=== PATIENT | female | born 1990 | race Caucasian/White ===

== ENCOUNTER 2017-07-20 13:11 | Emergency (ER) | payer MEDICAID, SELFPAY ==
[2017-07-20 14:50] VITALS: BP 132/86; PULSE 100; RESP 16; TEMP 37.7; O2SAT 99; BMI 34.6
--- NOTE | 2017-07-20 15:41 | HMH.EDUTC ---
[facility] – [place] Clinical Impression: Pyelonephritis Disposition: Home, Self-Care Condition on Discharge: Good Instructions: DI for Kidney Infection Additional Instructions: * increase fluids, Water and NOT soda or tea * Start antibiotic and be sure to take as ordered for the FULL length of time although you should start to see improvement over the next 48 hours. * You had rocephin injection in clinic * pyridium as needed. Remember this will turn your urine ORANGE, this is normal but will stain whatever it gets on. this includes tears and contacts. Try not to wear contacts due to risk of staining orange. * You should not need the pyridium longer than 48 hours. If so, follow up with primary care to review urine culture and ensure antibiotic is adequate * zofran as needed today and tomorrow but should not be needed after 48 hours. * Be SURE to follow up immediately for new or worsening symptoms, AND in [address] Nelson for urine culture results AND in 10-14 days to repeat UA and ensure infection resolved and blood no longer present. * Be sure to let your PCP (or whoever you follow up with) know we sent urine culture so they can request records and ensure you are on the appropriate antibiotic if you are not getting better or getting worse!!! Prescriptions: Ondansetron [Zofran 4mg ODT] 4 mg PO Q8H PRN #6 tab.rapdis PRN Reason: Nausea Phenazopyridine HCl [Pyridium 200mg Tablet] 200 mg PO TID PRN #6 tab PRN Reason: Dysuria Sulfamethoxazole/Trimethoprim [Bactrim DS tablet] 1 each PO BID #20 tab Referrals: Mariana Nelson MD [Primary Care Provider] - (Follow up immediately for new or worsening symptoms, AND in 48 hours for urine culture results AND in 10-14 days to repeat UA and ensure infection resolved and blood no longer present. ) Forms: Work/School Release Time of Disposition: 17:01 (pt agrees with POC. Understands the risk of worsening infection leading to sepsis. Agrees to follow up as we discussed. ) Medical Decision Making Vital Signs: 07/20/17 14:50 Temperature 100 F H Temperature Source Temporal Artery Scan Pulse Rate [Right Radial] 100 H Respiratory Rate 16 Blood Pressure [Right Arm] 132/86 Blood Pressure Mean [Right Arm] 101 02 Sat by Pulse Oximetry 99 Oxygen Delivery Method Room Air - Lab Data Lab results reviewed: Yes: I reviewed the patient's lab results. Lab Results 07/20/17 16:10: WBC 14.8 H, RBC 4.33, Hgb 12.8, Hct 38.1, MCV 88.0, MCH 29.6, MCHC 33.6, RDW 13.7, Plt Count 290, MPV 8.4, Neut % (Auto) 82.0 H, Lymph % (Auto) 12.4, [place] % (Auto) 5.0, Eos % (Auto) 0.3, Baso % (Auto) 0.3, Neut # (Auto) 12.1 H, Lymph # (Auto) 1.8, [place] # (Auto) 0.7, Eos # (Auto) 0.0, Baso # (Auto) 0.0 07/20/17 16:10: Sodium 136, Potassium 3.9, Chloride 101, Carbon Dioxide 23, Anion Gap 15.9 H, BUN 9, Creatinine 0.86, Estimated Creat Clear 148, Estimated GFR 80, Est GFR ( Amer) 97, Glucose 129 H, Calcium 8.6, Total Bilirubin 1.0, AST 11 L, ALT 27, Alkaline Phosphatase 93, Total Protein 8.1, Albumin 3.6, Globulin 4.5 H, Albumin/Globulin Ratio 0.8 L 07/20/17 16:10: Lactic Acid 1.6 07/20/17 16:55: Urine Color Yellow, Urine Appearance Clear, Urine pH 5.5, Ur Specific [place] 1.010, Urine Protein 1+, Urine Glucose (UA) Negative, Urine Ketones Negative, Urine Blood 2+, Urine Nitrate Positive A, Urine Bilirubin Negative, Urine Urobilinogen 0.2, Ur Leukocyte Esterase 3+ A, Influenza Type A Ag Negative, Influenza Type B Ag Negative, Strep Scn Rapid Clinic Negative Result diagrams: 07/20/17 16:10 07/20/17 16:10 Orders (Tests/Meds): ED MEDICATIONS Discontinued Medications Generic Name Dose Route Start Last Admin Trade Name Freq PRN Reason Stop Dose Admin Ceftriaxone Sodium 1 gm 07/20/17 16:55 Rocephin 1gm Vial IM 07/20/17 16:56 ONCE ONE Lidocaine HCl 0 ml 07/20/17 16:55 Lidocaine 1% 10ml Mdv IM 07/20/17 16:56 ONCE ONE ORDERS Category Date Time Status Strep Screen Confirma
--- NOTE | 2017-07-20 15:46 | ED_ITS ---
[facility] – [place] Disposition Clinical Impression: Pyelonephritis Disposition: Home, Self-Care Condition on Discharge: Good Instructions: DI for Kidney Infection Additional Instructions: * increase fluids, Water and NOT soda or tea * Start antibiotic and be sure to take as ordered for the FULL length of time although you should start to see improvement over the next 48 hours. * You had rocephin injection in clinic * pyridium as needed. Remember this will turn your urine ORANGE, this is normal but will stain whatever it gets on. this includes tears and contacts. Try not to wear contacts due to risk of staining orange. * You should not need the pyridium longer than 48 hours. If so, follow up with primary care to review urine culture and ensure antibiotic is adequate * zofran as needed today and tomorrow but should not be needed after 48 hours. * Be SURE to follow up immediately for new or worsening symptoms, AND in [address] Nelson for urine culture results AND in 10-14 days to repeat UA and ensure infection resolved and blood no longer present. * Be sure to let your PCP (or whoever you follow up with) know we sent urine culture so they can request records and ensure you are on the appropriate antibiotic if you are not getting better or getting worse!!! Prescriptions: Ondansetron [Zofran 4mg ODT] 4 mg PO Q8H PRN #6 tab.rapdis PRN Reason: Nausea Phenazopyridine HCl [Pyridium 200mg Tablet] 200 mg PO TID PRN #6 tab PRN Reason: Dysuria Sulfamethoxazole/Trimethoprim [Bactrim DS tablet] 1 each PO BID #20 tab Referrals: Mariana Nelson MD [Primary Care Provider] - (Follow up immediately for new or worsening symptoms, AND in 48 hours for urine culture results AND in 10-14 days to repeat UA and ensure infection resolved and blood no longer present. ) Forms: Work/School Release Time of Disposition: 17:01 (pt agrees with POC. Understands the risk of worsening infection leading to sepsis. Agrees to follow up as we discussed. ) Medical Decision Making Vital Signs: 07/20/17 14:50 Temperature 100 F H Temperature Source Temporal Artery Scan Pulse Rate [Right Radial] 100 H Respiratory Rate 16 Blood Pressure [Right Arm] 132/86 Blood Pressure Mean [Right Arm] 101 02 Sat by Pulse Oximetry 99 Oxygen Delivery Method Room Air - Lab Data Lab results reviewed: Yes: I reviewed the patient's lab results. Lab Results 07/20/17 16:10: WBC 14.8 H, RBC 4.33, Hgb 12.8, Hct 38.1, MCV 88.0, MCH 29.6, MCHC 33.6, RDW 13.7, Plt Count 290, MPV 8.4, Neut % (Auto) 82.0 H, Lymph % (Auto ) 12.4, [place] % (Auto) 5.0, Eos % (Auto) 0.3, Baso % (Auto) 0.3, Neut # (Auto) 12.1 H, Lymph # (Auto) 1.8, [place] # (Auto) 0.7, Eos # (Auto) 0.0, Baso # (Auto) 0.0 07/20/17 16:10: Sodium 136, Potassium 3.9, Chloride 101, Carbon Dioxide 23, Anion Gap 15.9 H, BUN 9, Creatinine 0.86, Estimated Creat Clear 148, Estimated GFR 80, Est GFR ( Amer) 97, Glucose 129 H, Calcium 8.6, Total Bilirubin 1.0, AST 11 L, ALT 27, Alkaline Phosphatase 93, Total Protein 8.1, Albumin 3.6, Globulin 4.5 H, Albumin/Globulin Ratio 0.8 L 07/20/17 16:10: Lactic Acid 1.6 07/20/17 16:55: Urine Color Yellow, Urine Appearance Clear, Urine pH 5.5, Ur Specific [place] 1.010, Urine Protein 1+, Urine Glucose (UA) Negative, Urine Ketones Negative, Urine Blood 2+, Urine Nitrate Positive A, Urine Bilirubin Negative, Urine Urobilinogen 0.2, Ur Leukocyte Esterase 3+ A, Influenza Type A Ag Negative, Influenza Type B Ag Negative, Strep Scn Rapid Clinic Negative Result diagrams: 07/20/17 16:10 07/20/17 16:10 Orders (Tests/Meds):
[2017-07-20 16:34] LABS: Alanine Aminotransferase 27 U/L (12-78); Albumin Level 3.6 gm/dL (3.4-5.0); Albumin/Globulin Ratio 0.8 (1.1-1.8); Alkaline Phosphatase 93 U/L (46-116); Anion Gap 15.9 mEq/L (5-15); Aspartate Amino Transferase 11 U/L (15-37); Basophils % 0.3 % (0.1-2.0); Blood Urea Nitrogen 9 mg/dL (7-18); Calcium 8.6 mg/dL (8.5-10.1); Carbon Dioxide 23 mmol/L (21.0-32.0); Chloride 101 mmol/L (98-107); Creatinine Clearance Estimated 148 mL/min (0-300); Creatinine,Serum 0.86 mg/dL (0.55-1.02); Eosinophils % 0.3 % (0.1-12.0); Estimated Glomerular Filt Rate 80 ml/min (>60); GFR (African American) 97 ML/MIN (>60); Globulin 4.5 gm/dl (1.3-3.2); Glucose 129 mg/dL (74-106); Hematocrit 38.1 % (37.0-47.0); Hemoglobin 12.8 g/dL (12.2-16.2); Lymphocytes # 1.8 K/mm3 (0.7-4.5); Lymphocytes % 12.4 K/mm3 (10-50); Mean Corpuscular HGB Conc 33.6 g/dL (31.8-35.4); Mean Corpuscular Hemoglobin 29.6 pg (27.0-31.2); Mean Platelet Volume 8.4 fl (7.4-10.4); Monocytes # 0.7 K/mm3 (0.1-1.0); Neutrophils # 12.1 K/mm3 (1.8-7.8); Platelet Count 290 K/mm3 (142-424); Potassium 3.9 mmoL/L (3.5-5.1); Red Blood Count 4.33 M/mm3 (4.20-5.40); Red Cell Distribution Width 13.7 % (11.5-17.5); Sodium 136 mmol/L (136-145); Total Protein,Serum 8.1 gm/dL (6.4-8.2); White Blood Count 14.8 K/mm3 (4.8-10.8)
[2017-07-20 16:36] LABS: Lactic Acid 1.6 mmol/L (0.4-2.0)
[2017-07-20 17:01] LABS: Apearance,Urine Clear (Clear); Color,Urine Yellow (Yellow)
[2017-07-20 17:02] LABS: Bilirubin,Urine Negative (Negative); Blood, Urine 2+ (Negative); Glucose,Urine (UA) Negative (Negative); Ketones,Urine Negative (Negative); PH,Urine 5.5 (5.0-8.5); Protein,Urine 1+ (Negative); UTC Influenza A Antigen Negative (Negative); UTC Influenza B Antigen Negative (Negative); UTC Leukocyte Esterase,Urine 3+ (Negative); UTC Strep Screen (Rapid) Negative (Negative); Urobilinogen,Urine 0.2 EU/dl (0.2)
[2017-07-20 17:03] LABS: UTC Nitrate,Urine Positive (Negative)
[2017-07-20 17:19] VITALS: BP 127/77; PULSE 67; RESP 20; TEMP 36.9; O2SAT 99
== END 2017-07-20 17:21 | disposition home or self-care (01) ==
PROVIDERS: Emergency Provider Nurse Practitioner Family; PCP Family Medicine
DX: N12 Tubulo-interstitial nephritis, not specified as acute or chronic (principal)
CPT/HCPCS: 36415; 80053; 81003; 83605; 85025; 87086; 87088; 87186; 87804; 87880; 96372; 99202; 99203

== ENCOUNTER → 2019-08-21 15:17 | Outpatient (CLI) | payer MEDICAID, SELFPAY | PROVIDERS: Visit Provider Nurse Practitioner Obstetrics & Gynecology | DX: O23.40 Unspecified infection of urinary tract in pregnancy, unspecified trimester (principal); Z34.90 Encounter for supervision of normal pregnancy, unspecified, unspecified trimester | CPT/HCPCS: 87086; 87088; 87186 ==

== ENCOUNTER → 2019-09-18 12:49 | Outpatient (CLI) | payer MEDICAID, SELFPAY ==
--- NOTE | 2019-09-18 12:49 | US_ITS ---
PROCEDURE: US OB /MATERNAL DETAIL CLINICAL INDICATION: 20 wk gestation And COMPARISON: No exams were available for comparison FINDINGS: There is a single live fetus which is in cephalic presentation. heart body motion noted. The cervix is closed measuring 3 cm transabdominal. The placenta is posterior and grade 1. There is average amount of amniotic fluid Complete survey performed and was unremarkable on the submitted images as in PACS. No discrete anomalies identified on survey imaging by technologist. Active fetus. Three-vessel cord with satisfactory umbilical cord insertion. 4- chamber heart noted. Survey of brain & ventricles Unremarkable. Face and neck survey unremarkable. Diaphragm and chest views unremarkable. Abdomen: Both kidneys noted and unremarkable. Stomach noted and satisfactory. Spine: Survey of the spine satisfactory with no anomalies identified nor imaged. Both arms and legs noted. Amniotic Fluid: Adequate. Maternal adnexa: No significant findings. Measurements: Average ultrasound age 19weeks 6days. Gestational Age 19 weeks 6 days Estimated due date by ultrasound age 0902/06/2020. Estimated weight 333g BPD = 19weeks 4days OFD = 19 weeks 5 days HC = 18weeks 6days AC = 20weeks 2days FL = 20weeks 3days Growth Percentile= 61% Heart Rate = 150bpm Cerebellum = 19weeks 3days Humerus = 20weeks 3days HC/AC is 1.08 CI is 0.79 FL/BPD is 0.74 FL/AC is 0.22 IMPRESSION: Single live fetus in cephalic presentation with an average ultrasound age 19 weeks 6 days. All parameters correlate with no obvious anomalies. Please see above for detail Dictated by: Enzo Sawyer MD 09/18/2019 18:57 Electronically signed by Enzo Sawyer MD in [place] 09/18/2019 18:57
== END ==
PROVIDERS: PCP Family Medicine; Visit Provider Nurse Practitioner Obstetrics & Gynecology
DX: Z34.90 Encounter for supervision of normal pregnancy, unspecified, unspecified trimester (principal)
CPT/HCPCS: 76811

== ENCOUNTER → 2020-01-09 17:46 | Outpatient (CLI) | payer MEDICAID, SELFPAY | PROVIDERS: Visit Provider Nurse Practitioner Obstetrics & Gynecology | DX: Z34.90 Encounter for supervision of normal pregnancy, unspecified, unspecified trimester (principal) | CPT/HCPCS: 86403 ==

== ENCOUNTER 2020-01-29 05:06 | Inpatient (IN) | payer MEDICAID, SELFPAY ==
[2020-01-29 05:18] VITALS: BMI 34.4
[2020-01-29 06:33] VITALS: BP 119/69; PULSE 80; RESP 18; TEMP 36.7; O2SAT 99; BMI 34.4
[2020-01-29 06:39] LABS: Basophils # 0.1 K/mm3 (0-0.2); Basophils % 0.5 % (0.1-2.0); Eosinophils # 0.2 K/mm3 (0.0-0.4); Eosinophils % 1.4 % (0.1-12.0); Hematocrit 35.8 % (37.0-47.0); Hemoglobin 12.2 g/dL (12.2-16.2); Lymphocytes # 3.5 K/mm3 (0.7-4.5); Lymphocytes % 24.3 % (10-50); Mean Corpuscular HGB Conc 33.9 g/dL (31.8-35.4); Mean Corpuscular Hemoglobin 30.8 pg (27.0-31.2); Mean Corpuscular Volume 90.9 fl (81-99); Monocytes # 0.9 K/mm3 (0.1-1.0); Monocytes % 6.2 % (1.7-9.3); Neutrophils # 9.6 K/mm3 (1.8-7.8); Neutrophils % 67.7 % (37.0-80.0); Platelet Count 196 K/mm3 (142-424); Red Blood Count 3.94 M/mm3 (4.20-5.40); Red Cell Distribution Width 14.4 % (11.5-17.5); White Blood Count 14.2 K/mm3 (4.8-10.8)
[2020-01-29 06:58] LABS: Barbiturates Screen,Urine Negative ng/ml (<200); Benzodiazepines Screen,Urine Negative ng/ml (<200)
[2020-01-29 06:59] LABS: Amphetamine/Metha Screen,Urine Negative ng/ml (<1000)
[2020-01-29 07:00] LABS: Cannabinoid Screen,Urine Negative ng/ml (<50); Methadone Screen,Urine Negative ng/ml (<300)
[2020-01-29 07:01] LABS: Cocaine Screen,Urine Negative ng/ml (<300)
[2020-01-29 07:02] LABS: Opiate Screen,Urine Negative ng/ml (<300); Phencyclidine Screen,Urine Negative ng/ml (<25)
--- NOTE | 2020-01-29 08:10 | HMH.LABNOT ---
Labor Note - Subjective: Date: 01/29/20 Time: 08:10 regular contraction - Objective: NST:: Reactive Contractions:: every 2-3 minutes Cervical Dilation:: 3-4 Effacement:: 50% Station: -2 Membranes: artificially ruptured - Fetus: Monitoring?: Yes monitoring type:: Internal Comment:: I inserted an IUPC as well as a scalp clip. I ruptured membranes and the fluid was clear. - Assessment: Labor progressing?: Yes Cephalopelvic disproportion?: No Patient Problems: All Active Problems (Acute) Tachycardia (Chronic) SVT (supraventricular tachycardia) (Chronic) Pyelonephritis (Acute) - Plan: Anesthesia for epidural?: Yes Continue to labor down?: Yes Plan for ?: No Continue to monitor?: Yes Start pushing?: No
--- NOTE | 2020-01-29 08:11 | HMH.OBAPHP ---
OB - H&P: HPI Antepartum - History of Present Illness Chief complaint: Term , history of fast deliveries. History of present illness: She is a 29-year-old 5 para 4 who is 39+ weeks gestational age. She has history of delivering fairly quickly and as result of that we elected to bring her in at term. - History of Present Criteria for establishing EDC:: LMP confirmed by 1st trimester US care: good care Ultrasounds: normal 1st trimester US, normal mid trimester US Obstetrical complications: none Medical complications: none - Labs Blood type: O (+) positive Rubella: immune RPR/VDRL: nonreactive GBS status: negative HBsAG: negative [facility] History I have reviewed the patient's past medical history: Yes Medical History: Reports:: Kidney Stones, Migraine Denies:: Cancer, Diabetes Mellitus Type 1, Diabetes Mellitus Type 2, Hypertension, MRSA *Have you ever received a pneumonia vaccine?: No *Have you received a flu vaccine this season?: No Other Surgeries: Yes: Other. No: Amputation: No Fractures: No - *Social History Smoking Status: Current every day smoker Alcohol Intake: never Alcohol Intake Frequency:: a few times a week Substance Use Type: other *Occupational Status:: employed *Travel in the last 8 weeks: None Family Hx:: Diabetes, Heart Attack, Hypertension, Stroke, Asthma Para: 4 Review of Systems - Review of Systems Review of systems:: pertinent systems reviewed and negative unless documented below Meds Home Medications Medication Instructions Recorded Confirmed Type vitamin 1 tab PO DAILY #30 tab 08/21/19 01/22/20 Rx no.76-iron,carbonyl 29 mg iron-folic acid 1 mg tablet ferrous sulfate 325 mg (65 mg 325 mg PO DAILY #30 tab 12/28/19 01/22/20 Rx iron) tablet Allergies Allergy/AdvReac Type Severity Reaction Status Date / Time Latex, Natural Rubber Allergy Rash Verified 01/22/20 15:52 sulfamethoxazole Allergy Verified 01/22/20 15:52 [From Bactrim] trimethoprim [From Bactrim] Allergy Verified 01/22/20 15:52 OB - H&P: Exam - Physical Exam Vital signs: Temp Pulse Resp BP Pulse Ox 98.1 F 80 18 119/69 99 01/29/20 06:33 01/29/20 06:33 01/29/20 06:33 01/29/20 06:33 01/29/20 06:33 - Constitutional no acute distress - Routine HEENT Exam Head: Present: normocephalic Eye: Present: EOMI, PERRL ENT: Present: mucous membranes moist - Routine Neck Exam Present: supple, full ROM - Routine Respiratory Exam Absent: accessory muscle use (good air entry bilaterally), respiratory distress, wheezes, crackles - Routine Cardiovascular Exam Present: RRR. Absent: murmur - Routine Abdominal Exam Present: soft, normoactive bowel sounds. Absent: tenderness, distended, guarding - Routine Rectal Exam Patient deferred: visual exam, digital exam - Routine Exam Patient deferred: external exam, groin exam, perineal exam - Routine Extremities Exam Present: full ROM. Absent: cyanosis, edema - Routine Skin Exam Present: intact. Absent: cyanosis - Routine Neurological Exam Present: alert, oriented X3 - Routine Psychiatric Exam Present: normal affect OB - Results - Labs Labs: Short CBC 01/29/20 Range/Units 06:20 WBC 14.2 H (4.8-10.8) K/mm3 Hgb 12.2 (12.2-16.2) g/dL Hct 35.8 L (37.0-47.0) % Plt Count 196 (142-424) K/mm3 OB - A/P Antepartum (1) Normal delivery at term Current visit: Yes Status: Acute - Additional Plan Planning to breastfeed?: No Plan: induction Additional Information:: I have ruptured membranes and inserted an IUPC as well as a clip. She is doing well. We will expect a vaginal delivery.
[2020-01-29 08:19] LABS: Coronavirus 19 IgG Antibody Negative (Negative); Coronavirus 19 IgM Antibody Negative (Negative)
[2020-01-29 08:21] VITALS: BP 122/73; PULSE 76; RESP 18; TEMP 36.7; O2SAT 99
--- NOTE | 2020-01-29 11:06 | HMH.LABNOT ---
Labor Note - Subjective: Date: 01/29/20 Time: 11:06 regular contraction - Objective: NST:: Reactive Contractions:: every 2-3 minutes Cervical Dilation:: 9-10 Effacement:: 100% Station: +1 Membranes: artificially ruptured - Fetus: Monitoring?: Yes monitoring type:: Internal and External, Internal - Assessment: Labor progressing?: Yes Cephalopelvic disproportion?: No Patient Problems: All Active Problems Normal delivery at term (Acute) (Acute) Tachycardia (Chronic) SVT (supraventricular tachycardia) (Chronic) Pyelonephritis (Acute) - Plan: Anesthesia for epidural?: Yes Continue to labor down?: Yes Plan for ?: No Continue to monitor?: Yes Start pushing?: Yes
--- NOTE | 2020-01-29 11:21 | P.PCN_ITS ---
- Delivery Note Delivery Date:: 01/29/20 Delivery Time:: 11:12 Anesthesia Type: Epidural Was labor medically induced?: Yes Induction method: per misoprostol protocol delivered prior to 39 weeks?: No Infant Gender: Female at 1 minute: 9 at 5 minutes: 9 Delivery Procedure:: She was started on IV oxytocin had her membranes ruptured. Under labor epidural she progressed to full dilation. She delivered spontaneously a liveborn female child at 11:12 AM on the morning of 29 January 2020. On deliver the head the anterior shoulder then delivered easily. This was followed by the rest the infant's body atraumatically. The baby cried spontaneously and was vigorous. The oropharynx and nasopharynx were bulb suction. We allowed the cord to continue to pulsate for approximately 1 minute. The cord was then doubly clamped and cut and the was placed on the mother's abdomen for further care. The nurses assigned Apgars of 9 at 1 minute and 9 at 5 minutes. We then obtained cord blood as well as cord pH. Using gentle traction on the cord and countertraction on the fundus I was able to easily deliver the placenta intact. He had a normal three-vessel cord. There were no perineal or vaginal lacerations. She has O Rh+ blood, she is rubella immune and was group B streptococcus negat mare. She plans to breast-feed. Progress made blood loss was approximately 400 cc. Placental Delivery Description: Spontaneous
[2020-01-29 11:33] LABS: Cord Blood PH 7.38 (7.35-7.45)
--- NOTE | 2020-01-29 13:20 | P.PN_ITS ---
[facility] Anesthesia Checklist - Patient Identification Patient Identification: Arm Band, Verbal (Name & ) - Structural Data Admitted From: Home Planned Operative Procedure/s: Labor epidural Consent for Planned Operative Procedure(s) Verified: Yes Verified Documents: Surgical Consent, History and Physical - Chart Verification Results Verified: CBC, UA (Toxicology) - Additional verifications Patient : Yes Anesthesia Reactions: No - Airway Assessment C-Spine Mobility Assessed: Yes TMJ Mobility Assessed: Yes Dentition: Good Dentition - Neurological Assessment Level of Consciousness: Awake, Alert, Appropriate, Follows Commands Hx Seizures: No Numbness or tingling in extremities: No - Anesthesia Plan Anesthesia Risk discussed: Yes Anesthesia Plan: Verified ASA Class: II Anesthesia Type: Epidural [facility] History I have reviewed the patient's past medical history: Yes Medical History: 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 No: , Pacemaker Amputation: No Fractures: No - *Social History Last grade of school completed: GED Smoking Status: Current every day smoker Tobacco Type: cigarettes # Packs/Day (cigarettes): 1 Alcohol Intake: former Alcohol Intake Frequency:: other Substance Use Type: other *Occupational Status:: employed Household Members: significant other *Travel in the last 8 weeks: None Family Hx:: Cancer Para: 4
[2020-01-29 17:08] VITALS: BP 114/56; PULSE 71; RESP 18; O2SAT 98
[2020-01-30 07:45] LABS: Hematocrit 34.7 % (37.0-47.0); Hemoglobin 11.7 g/dL (12.2-16.2)
[2020-01-30 08:43] VITALS: BP 122/88; PULSE 78; RESP 18; TEMP 36.5; O2SAT 99
--- NOTE | 2020-01-30 11:53 | HMH.ACPN2 ---
Internal Medicine - PN: Subj *Date: 01/30/20 *Time: 11:53 Interval history: PPD #1 No unusual complaints Tolerating regular diet, ambulating and voiding without difficulty Lochia appropriate Exam Vital signs and Labs for Last 24 Hours: Temp Pulse Resp BP Pulse Ox 97.7 F 78 18 122/88 99 01/30/20 08:43 01/30/20 08:43 01/30/20 08:43 01/30/20 08:43 01/30/20 08:43 Laboratory Results - last 24 hr 01/30/20 07:12: Hgb 11.7 L, Hct 34.7 L I & O for Last 24 hours: Intake & Output 01/27/20 01/28/20 01/29/20 01/30/20 11:59 11:59 11:59 11:59 Weight 207 lb 0.013 oz Narrative: CONSTITUTIONAL: no acute distress HEENT: mucous membranes moist PULMONARY: breathing unlabored without audible wheezes CV: no tachycardia or visible JVD; normal LE peripheral pulses ABD: soft, NT/ND, no guarding : fundus firm at/below umbilicus SKIN: no visible rash or lesions EXT: 1+ edema LEs NEURO: alert/oriented, no altered mental status PSYCH: appropriate mood and demeanor without visible anxiety/depression Assessment and Plan (1) Normal delivery at term Current visit: Yes Status: Acute Category: Medical Code(s): O80 - Encounter for full-term uncomplicated delivery
[2020-01-30 12:06] VITALS: BP 123/73; PULSE 79; RESP 18; TEMP 36.3; O2SAT 98
[2020-01-31 06:52] LABS: HIV Screen 4th Generation wRfx Non Reactive (Non Reactive); Hepatitis B Surface Antigen Negative (Negative); Rapid Plasma Reagin Ab Titer Non Reactive (NonRea<1:1)
[2020-01-31 07:41] VITALS: BP 98/54; PULSE 76; RESP 18; TEMP 36.5; O2SAT 98
--- NOTE | 2020-01-31 12:16 | HMH.OBDCSM ---
General - General Admission date:: 01/29/20 Discharge date: 01/31/20 Hospital Course Hospital Course: IOl at term normal course uncomplicated Tolerating regular diet, ambulating and voiding without difficulty Discharged home on PPD #2 in stable condition Declines Rx for pain meds at discharge Rhogam Administration: Not Indicated Objective Vital signs: Temp Pulse Resp BP Pulse Ox 97.7 F 76 18 98/54 L 98 01/31/20 07:41 01/31/20 07:41 01/31/20 07:41 01/31/20 07:41 01/31/20 07:41 Narrative: CONSTITUTIONAL: no acute distress HEENT: mucous membranes moist PULMONARY: breathing unlabored without audible wheezes CV: no tachycardia or visible JVD; normal LE peripheral pulses ABD: soft, NT/ND, no guarding : fundus firm at/below umbilicus SKIN: no visible rash or lesions EXT: 1+ edema LEs NEURO: alert/oriented, no altered mental status PSYCH: appropriate mood and demeanor without visible anxiety/depression Results Labs on day of discharge: Labs from last 24 hours 01/29/20 06:20 RPR Titer Non reactive Hep Bs Antigen Negative HIV 1&2 Ag/Ab, 4th Gen Non reactive Rubella IgG Antibody 2.60 DS: Diagnosis - Discharge Diagnosis (1) Normal delivery at term Status: Acute Discharge Plan - Patient Discharge Instructions ACTIVITY: Continue current activity DIET: regular diet Additional Instructions: No heavy lifting Drink plenty of fluid Nothing in the vagina for 6 weeks No strenuous activity Patient Instructions: Pre-eclampsia, Depression, Labor and Delivery, Vaginal , Hemorrhage, [facility] Post Discharge Instructions, Preventing the Spread of Coronavirus Discharge Instructions - Follow up Plan Follow up with: Judah Yost MD [Staff Physician] - 02/11/20 3:15 pm Disposition: Home, Self-Skilled Nursing Medications: Home Medications Medication Instructions Recorded Confirmed Type Ferrous Sulfate 325 mg PO DAILY 01/29/20 01/29/20 History Vit,Calc76/Iron/Folic 1 tab PO DAILY 01/29/20 01/29/20 History [Prenatabs Rx Tablet] Prescriptions/Medication Reconciliation: New Ibuprofen [Motrin 400mg tablet] 800 mg PO Q6HP PRN tablet PRN Reason: Mild To Moderate Pain Acetaminophen [Acetaminophen 325mg tab] 650 mg PO Q4HP PRN tablet PRN Reason: Mild Pain Continued Vit,Calc76/Iron/Folic [Prenatabs Rx Tablet] 1 tab PO DAILY Ferrous Sulfate 325 mg PO DAILY - Problem Reconciliation Problems Reviewed?: Yes
== END 2020-01-31 13:33 | disposition home or self-care (01) | DRG 807 ==
PROVIDERS: Admitting Provider Nurse Practitioner Obstetrics & Gynecology; PCP Nurse Practitioner Family; Visit Provider Nurse Practitioner Obstetrics & Gynecology
DX: O80 Encounter for full-term uncomplicated delivery (principal); Z37.0 Single live birth; Z3A.39 39 weeks gestation of pregnancy
CPT/HCPCS: 59409; 59025; 80305; 82800; 85014; 85018; 85025; 86328; 86592; 86762; 86850; 87340; 94761; C1758

== ENCOUNTER 2020-03-25 17:05 | Emergency (ER) | payer MEDICAID, SELFPAY ==
[2020-03-25 17:43] VITALS: BP 147/94; PULSE 83; RESP 14; TEMP 36.7; O2SAT 99; BMI 30.9
[2020-03-25 17:58] LABS: Adenovirus,PCR Not Detected (NotDetected); Bordetella Pertussis Not Detected (NotDetected); Chlamydophila Pneumoniae, PCR Not Detected (NotDetected); Coronavirus 19, PCR Not Detected (NotDetected); Coronavirus 229E Not Detected (NotDetected); Coronavirus NL63 Not Detected (NotDetected); Coronavirus OC43 Not Detected (NotDetected); Coronovirus HKU1,PCR Not Detected (NotDetected); Human Metapneumovirus Not Detected (NotDetected); Influenza A, PCR Not Detected (NotDetected); Influenza AH1, 2009 Not Detected (NotDetected); Influenza AH1, PCR Not Detected (NotDetected); Influenza AH3,PCR Not Detected (NotDetected); Influenza B, PCR Not Detected (NotDetected); Mycoplasma Pneumoniae, PCR Not Detected (NotDetected); Parainfluenza 1, PCR Not Detected (NotDetected); Parainfluenza 2, PCR Not Detected (NotDetected); Parainfluenza 3, PCR Not Detected (NotDetected); Parainfluenza 4, PCR Not Detected (NotDetected); Respiratory Syncytial Virus Not Detected (NotDetected); Rhinovirus/Enterovirus Not Detected (NotDetected)
--- NOTE | 2020-03-25 18:04 | HMH.EDUTC ---
[facility] [place] Disposition Clinical Impression: Encounter for laboratory testing for COVID-19 virus, Exposure to COVID-19 virus Disposition: Home, Self-Care Condition on Discharge: Good Instructions: Preventing the Spread of Coronavirus Discharge Instructions Additional Instructions: *Monitor Temp, Over the counter Motrin or Tylenol as directed/as needed Tylenol every 4 hours and Motrin every 6 hours (as long as your family doctor has told you that you can take it) for fever or pain. and straight to ER if unable to lower temp less than 101.0 after medication given *Warm salt water gargles may help to soothe the throat *Throat Lozenges *Warm fluids like tea with honey may help to soothe the throat *Sleep elevated *Humidifier/Vaporizer Follow up IMMEDIATELY for new or worsening symptoms or no Noticeable improvement over the next 48-72 hours. 911 for difficulty breathing or swallowing You was tested for today for COVID19 your test result should be back in the next 24 hours, you may call tomorrow after 9am to see if your test results are back and the result You was given a handout with instructions for Self Quarantine and Self isolation for while you wait on test results and what to do if they are positive Referrals: Laura Celis [Primary Care Provider] - As needed Forms: Work/School Release Time of Disposition: 18:06 Medical Decision Making - Mike Inquiry Pt receiving controlled substance: No Mike was queried for this patient: No Vital Signs: 03/25/20 17:43 Temperature 98.0 F Temperature Source Oral Pulse Rate [Radial] 83 Respiratory Rate 14 Blood Pressure [Right Arm] 147/94 H Blood Pressure Mean [Right Arm] 111 Blood Pressure Source [Right Arm] Automatic Cuff Blood Pressure Position [Right Arm] Sitting 02 Sat by Pulse Oximetry 99 Oxygen Delivery Method Room Air Orders (Tests/Meds): ORDERS Category Date Time Status Full Resp Panel w/COVID ([facility]) Routine Lab 03/25/20 17:42 Received [facility] [place] HPI - General Stated complaint: COVID TEST Time Seen by Provider: 03/25/20 18:04 Mode of Arrival: Ambulatory Source of Information: Patient Limitations: No Limitations Description of Symptoms (Recalled from Triage Doc. by RN): needs covid test for work due to exposure at work. HEENT Symptoms (Recalled from RN notes): No Resp Symptoms (Recalled from RN notes): No Skin Symptoms (Recalled from RN notes): No MS Symptoms (Recalled from RN notes): No Functional Status (Recalled from RN notes): wnl - History of Present Illness Provider Complaint: Patient states that she had a headache earlier and States that someone that she worked with tested positive for COVID States that her work is requiring her to get tested before she can return to work - Related Data Home Medications Medication Instructions Recorded Confirmed Ferrous Sulfate 325 mg PO DAILY 01/29/20 01/29/20 Vit,Calc76/Iron/Folic 1 tab PO DAILY 01/29/20 01/29/20 [Prenatabs Rx Tablet] Previous Rx's Medication Instructions Recorded Acetaminophen [Acetaminophen 325mg 650 mg PO Q4HP PRN tab 01/31/20 tab] Ibuprofen [Motrin 400mg 800 mg PO Q6HP PRN tab 01/31/20 tablet] fluoxetine 10 mg tablet 10 mg PO DAILY #30 tab 02/11/20 hydroxyzine pamoate 25 mg capsule 25 mg PO TID 30 Days #90 cap 02/11/20 Allergies Allergy/AdvReac Type Severity Reaction Status Date / Time Latex, Natural Rubber Allergy Rash Verified 02/11/20 15:45 sulfamethoxazole Allergy Verified 02/11/20 15:45 [From Bactrim] trimethoprim [From Bactrim] Allergy Verified 02/11/20 15:45 - Worker's Comp Is this a Worker's Comp case?: No [facility] History - Hepatitis A Screen Drug use history?: No High risk sexual behaviors?: No History of sexually transmitted infection?: No Currently employed?: No Childcare worker?: No Do you have indoor plumbing?: Yes Do you have electricity?: Yes Attestation statement:: This patient has been screened for Hepatitis
[2020-03-25 18:39] VITALS: BP 147/94; PULSE 83; RESP 14; TEMP 36.9; O2SAT 99
== END 2020-03-25 18:45 | disposition home or self-care (01) ==
PROVIDERS: Emergency Provider Nurse Practitioner; PCP Nurse Practitioner Family
DX: Z20.828 Contact with and (suspected) exposure to other viral communicable diseases (principal)
CPT/HCPCS: 87581; 87633; 87798; 99201; U0003

== ENCOUNTER 2020-05-03 15:27 | Emergency (ER) | payer MEDICAID, SELFPAY ==
[2020-05-03 15:40] VITALS: BP 119/79; PULSE 85; RESP 20; TEMP 36.9; O2SAT 98; BMI 31.6
--- NOTE | 2020-05-03 16:04 | HMH.EDUTC ---
[facility] [place] Disposition Clinical Impression: Exposure to COVID-19 virus Disposition: Home, Self-Care Condition on Discharge: Good Instructions: Preventing the Spread of Coronavirus Discharge Instructions Additional Instructions: isolate until test is known to be neg Referrals: Laura Celis [Primary Care Provider] - Time of Disposition: 16:27 Medical Decision Making - Mike Inquiry Pt receiving controlled substance: No Vital Signs: 05/03/20 15:40 Temperature 98.4 F Temperature Source Oral Pulse Rate [Right Brachial] 85 Respiratory Rate 20 Blood Pressure [Right Arm] 119/79 Blood Pressure Mean [Right Arm] 92 Blood Pressure Source [Right Arm] Automatic Cuff Blood Pressure Position [Right Arm] Sitting 02 Sat by Pulse Oximetry 98 Oxygen Delivery Method Room Air Orders (Tests/Meds): ORDERS Category Date Time Status Covid-19 Nasal PCR ([facility]) Routine Lab 05/03/20 15:45 Received [facility] [place] HPI - General Chief complaint: Urgent Treatment Center Stated complaint: COVID Testing Time Seen by Provider: 05/03/20 16:04 Mode of Arrival: Ambulatory Source of Information: Patient Limitations: No Limitations Description of Symptoms (Recalled from Triage Doc. by RN): PATIENT REQUESTING COVID TEST D/T EXPOSURE. DENIES SYMPTOMS HEENT Symptoms (Recalled from RN notes): No Resp Symptoms (Recalled from RN notes): No Skin Symptoms (Recalled from RN notes): No MS Symptoms (Recalled from RN notes): No Functional Status (Recalled from RN notes): WNL - History of Present Illness Provider Complaint: 29 old female presents for covid test, was exposed ths week by co worker that tested positive. no symptoms - Related Data Home Medications Medication Instructions Recorded Confirmed Ferrous Sulfate 325 mg PO DAILY 01/29/20 01/29/20 Vit,Calc76/Iron/Folic 1 tab PO DAILY 01/29/20 01/29/20 [Prenatabs Rx Tablet] Previous Rx's Medication Instructions Recorded Acetaminophen [Acetaminophen 325mg 650 mg PO Q4HP PRN tab 01/31/20 tab] Ibuprofen [Motrin 400mg 800 mg PO Q6HP PRN tab 01/31/20 tablet] fluoxetine 10 mg tablet 10 mg PO DAILY #30 tab 02/11/20 hydroxyzine pamoate 25 mg capsule 25 mg PO TID 30 Days #90 cap 09/14/20 Allergies Allergy/AdvReac Type Severity Reaction Status Date / Time Latex, Natural Rubber Allergy Rash Verified 02/11/20 15:45 sulfamethoxazole Allergy Verified 02/11/20 15:45 [From Bactrim] trimethoprim [From Bactrim] Allergy Verified 02/11/20 15:45 - Worker's Comp Is this a Worker's Comp case?: No [facility] History - Hepatitis A Screen Drug use history?: No High risk sexual behaviors?: No History of sexually transmitted infection?: No Currently employed?: No Childcare worker?: No Do you have indoor plumbing?: Yes Do you have electricity?: Yes Attestation statement:: This patient has been screened for Hepatitis A risk factors. I have reviewed the patient's past medical history: Yes Medical History: Reports:: Arrhythmia, Kidney Stones, Migraine Denies:: Cancer, Diabetes Mellitus Type 1, Diabetes Mellitus Type 2, Hypertension, Internal Pacemaker, MRSA, Seizures Other Surgeries: Yes: Other. No: , Pacemaker Amputation: No Fractures: No - Social History Smoking Status: Current every day smoker Tobacco Type: cigarettes # Packs/Day (cigarettes): 1 Alcohol Intake: never Alcohol Intake Frequency:: other Substance Use Type: other Occupational Status: other Housing: house Household Members: significant other Family Hx:: Cancer ROS Obtained: Yes All systems reviewed & no additional complaints - Constitutional Constitutional: Reports system reviewed and no additional complaints, except as docu, Denies fever(s) - Eyes Eyes: Reports system reviewed and no additional complaints, except as docu, Denies blurry vision - ENT Ears, Nose, Mouth, and Throat: Reports system reviewed and no additional complaints, except as docu, Denies bleeding gums -
[2020-05-03 16:35] VITALS: BP 119/79; PULSE 85; RESP 20; TEMP 36.9; O2SAT 98
== END 2020-05-03 16:36 | disposition home or self-care (01) ==
PROVIDERS: Emergency Provider Nurse Practitioner Family; PCP Nurse Practitioner Family
DX: Z20.828 Contact with and (suspected) exposure to other viral communicable diseases (principal); G43.709 Chronic migraine without aura, not intractable, without status migrainosus; Z87.442 Personal history of urinary calculi; F17.210 Nicotine dependence, cigarettes, uncomplicated; Z91.040 Latex allergy status; Z88.2 Allergy status to sulfonamides
CPT/HCPCS: 99201; U0003

== ENCOUNTER → 2020-09-26 10:23 | Outpatient (CLI) | payer MEDICAID, SELFPAY ==
--- NOTE | 2020-09-26 10:28 | US_ITS ---
PROCEDURE: US OB <= 14 WEEKS FETUS CLINICAL INDICATION: for dates COMPARISON: US US OB /MATERNAL DETAIL from 09/18/2019 FINDINGS: An intrauterine gestational sac is present with a pole with a crown-rump length of 5.63cm correlating to gestational age of 12weeks 2days. heart tones are present with an FHR of 160bpm. The chorion and amnion are not yet fused. Placenta is forming posteriorly. IMPRESSION: Live IUP at 12 weeks 2 days Estimated due date by Ultrasound is 04/08/2021 Dictated by: Enzo Sawyer MD 09/26/2020 15:30 Enzo Sawyer MD in [facility] 09/26/2020 15:30
== END ==
PROVIDERS: PCP Nurse Practitioner Family; Visit Provider Nurse Practitioner Obstetrics & Gynecology
DX: Z34.90 Encounter for supervision of normal pregnancy, unspecified, unspecified trimester (principal)
CPT/HCPCS: 76801

== ENCOUNTER → 2020-10-22 11:02 | Outpatient (CLI) | payer MEDICAID, SELFPAY ==
[2020-10-22 11:38] LABS: Basophils % 0.3 % (0.1-2.0); Eosinophils # 0.1 K/mm3 (0.0-0.4); Eosinophils % 0.9 % (0.1-12.0); Hematocrit 39.6 % (37.0-47.0); Hemoglobin 13.7 g/dL (12.2-16.2); Lymphocytes # 2.2 K/mm3 (0.7-4.5); Lymphocytes % 16.6 % (10-50); Mean Corpuscular HGB Conc 34.6 g/dL (31.8-35.4); Mean Corpuscular Volume 86.5 fl (81-99); Mean Platelet Volume 8.4 fl (7.4-10.4); Monocytes # 0.6 K/mm3 (0.1-1.0); Monocytes % 4.5 % (1.7-9.3); Neutrophils # 10.4 K/mm3 (1.8-7.8); Neutrophils % 77.8 % (37.0-80.0); Platelet Count 251 K/mm3 (142-424); Red Blood Count 4.57 M/mm3 (4.20-5.40); Red Cell Distribution Width 14.5 % (11.5-17.5); White Blood Count 13.3 K/mm3 (4.8-10.8)
[2020-10-23 08:34] LABS: HIV Screen 4th Generation wRfx Non Reactive (Non Reactive)
[2020-10-24 04:11] LABS: Hepatitis B Surface Antigen Negative (Negative); Hepatitis C Antibody <0.1 s/co ratio (0.0-0.9); Rapid Plasma Reagin Ab Titer Non Reactive (NonRea<1:1)
[2020-10-24 04:12] LABS: Rubella Antibodies, IgG 3.38 index (Immune >0.99)
== END ==
PROVIDERS: Visit Provider Nurse Practitioner Obstetrics & Gynecology
DX: Z34.90 Encounter for supervision of normal pregnancy, unspecified, unspecified trimester (principal); Z3A.11 11 weeks gestation of pregnancy
CPT/HCPCS: 36415; 85025; 86592; 86703; 86762; 86850; 87340; 87380; G0432

== ENCOUNTER → 2020-11-19 11:56 | Outpatient (CLI) | payer MEDICAID, SELFPAY ==
--- NOTE | 2020-11-19 12:59 | US_ITS ---
PROCEDURE: US OB /MATERNAL DETAIL CLINICAL INDICATION: 20 week gestation COMPARISON: US US OB <= 14 WEEKS FETUS from 09/26/2020 FINDINGS: Single viable intrauterine gestation. Cephalic position. Placenta: Posteriorplacenta grade 1. There is average amount fluid. The cervix appears satisfactory. Closed and measuring in length. Complete survey performed and was unremarkable on the submitted images as in PACS. No discrete anomalies identified on survey imaging by technologist. Active fetus. Three-vessel cord with satisfactory umbilical cord insertion. 4- chamber heart noted. Survey of brain & ventricles Unremarkable. Face and neck survey unremarkable. Diaphragm and chest views unremarkable. Abdomen: Both kidneys noted and unremarkable. Stomach noted and satisfactory. Spine: Survey of the spine satisfactory with no anomalies identified nor imaged. Both arms and legs noted. Amniotic Fluid: Adequate. Maternal adnexa: No significant findings. Measurements: Average ultrasound age 19weeks 6days. Gestational Age 19weeks 6days Estimated due date by ultrasound age 1104/09/2021. Estimated weight 325g BPD = 19weeks 6days OFD = 19weeks 6days HC = 19weeks 1day AC = 20weeks 1day FL = 20weeks 2days Growth Percentile= 36Percent% Heart Rate = 146bpm Cerebellum = 20weeks 2days Humerus = 20weeks 3days HC/AC is 1.1 CI is 0.79 FL/BPD is 0.72 FL/AC is 0.22 IMPRESSION: Viable IUP identified in cephalic position estimated ultrasound age and gestational age 19 weeks 6 days Dictated by: Dr. Chang Holden MD 11/19/2020 15:23 Dr. Chang Holden MD in [facility] 11/19/2020 15:23
== END ==
PROVIDERS: PCP Nurse Practitioner Family; Visit Provider Nurse Practitioner Obstetrics & Gynecology
DX: Z34.90 Encounter for supervision of normal pregnancy, unspecified, unspecified trimester (principal); Z3A.20 20 weeks gestation of pregnancy
CPT/HCPCS: 76811

== ENCOUNTER → 2021-03-13 16:20 | Outpatient (CLI) | payer MEDICAID, SELFPAY | PROVIDERS: Visit Provider Nurse Practitioner Obstetrics & Gynecology | DX: Z34.90 Encounter for supervision of normal pregnancy, unspecified, unspecified trimester (principal) | CPT/HCPCS: 86403 ==

== ENCOUNTER 2021-03-25 06:25 | Inpatient (IN) | payer MEDICAID, SELFPAY ==
[2021-03-25 06:48] VITALS: BP 107/59; PULSE 74; RESP 18; TEMP 36.4; O2SAT 98
--- NOTE | 2021-03-25 06:56 | HMH.DN ---
- Delivery Note Delivery Date:: 03/25/21 Delivery Time:: 06:30 Anesthesia Type: None Was labor medically induced?: No Induction method: none Gestational age (weeks): 38 delivered prior to 39 weeks?: Yes Justification for early elective delivery:: Active Labor Infant Gender: Male at 1 minute: 8 at 5 minutes: 9 Delivery Procedure:: She is a 30-year-old 6 para 5 at 38 and 3 weeks gestational age who arrived in active labor. She was found to be fully dilated and spontaneously delivered a liveborn male child at 6:30 AM on the morning of March 25, 2021. The baby delivered before I arrived. He was delivered by the nurses. They assigned Apgars of 8 at 1 minute and 9 at 5 minutes. When I arrived the placenta had not delivered and she was receiving IV oxytocin. Using gentle traction the cord and countertraction from the surgical to easily deliver the placenta intact at 6:50 AM. It had a normal three-vessel cord. She has O+ blood,, she is rubella immune and was group B streptococcus negative. Her film tests checker Dr. Willis. Estimated blood loss was approximately 200 cc. There were no perineal or vaginal lacerations. Placental Delivery Description: Spontaneous
--- NOTE | 2021-03-25 06:58 | HMH.OBAPHP ---
OB - H&P: HPI Antepartum - History of Present Illness Chief complaint: Active labor History of present illness: She is a 30-year-old 6 para 5 at 38 weeks gestational age who arrived in active labor and quickly precipitously delivered a liveborn male child. She has had good care. - History of Present Criteria for establishing EDC:: LMP confirmed by 1st trimester US care: good care Ultrasounds: normal 1st trimester US, normal mid trimester US Obstetrical complications: none Medical complications: none - Labs Blood type: O (+) positive Rubella: immune RPR/VDRL: nonreactive GBS status: negative HBsAG: negative [facility] History I have reviewed the patient's past medical history: Yes Medical History: Reports:: Arrhythmia, Cancer, Kidney Stones, Migraine Denies:: Diabetes Mellitus Type 1, Diabetes Mellitus Type 2, Hypertension, Internal Pacemaker, MRSA, Seizures *Have you ever received a pneumonia vaccine?: No *Have you received a flu vaccine this season?: No Other Surgeries: Yes: Other. No: , Pacemaker Amputation: No Fractures: No - *Social History Smoking Status: Current every day smoker Tobacco Type: cigarettes # Packs/Day (cigarettes): 1 Alcohol Intake: never Alcohol Intake Frequency:: other Substance Use Type: other *Occupational Status:: other Housing: house Household Members: significant other *Travel in the last 8 weeks: None Family Hx:: Cancer Review of Systems - Review of Systems Review of systems:: pertinent systems reviewed and negative unless documented below Meds Home Medications Medication Instructions Recorded Confirmed Type Vit,Calc76/Iron/Folic 1 tab PO DAILY 01/29/20 03/13/21 History [Prenatabs Rx Tablet] ferrous gluconate 324 mg (38 mg 324 mg PO DAILY #30 tab 11/19/20 03/13/21 Rx iron) tablet nitrofurantoin 100 mg PO BID 10 Days #20 cap 02/03/21 03/13/21 Rx monohydrate/macrocrystals 100 mg capsule Allergies Allergy/AdvReac Type Severity Reaction Status Date / Time Latex, Natural Rubber Allergy Rash Verified 03/13/21 11:58 sulfamethoxazole Allergy Verified 03/13/21 11:58 [From Bactrim] trimethoprim [From Bactrim] Allergy Verified 03/13/21 11:58 OB - H&P: Exam - Constitutional no acute distress - Routine HEENT Exam Head: Present: normocephalic Eye: Present: EOMI, PERRL ENT: Present: mucous membranes moist - Routine Neck Exam Present: supple, full ROM - Routine Respiratory Exam Absent: accessory muscle use (good air entry bilaterally), respiratory distress, wheezes, crackles - Routine Cardiovascular Exam Present: RRR. Absent: murmur - Routine Abdominal Exam Present: soft, normoactive bowel sounds. Absent: tenderness, distended, guarding - Routine Rectal Exam Patient deferred: visual exam, digital exam - Routine Exam Patient deferred: external exam, groin exam, perineal exam - Routine Extremities Exam Present: full ROM. Absent: cyanosis, edema - Routine Skin Exam Present: intact. Absent: cyanosis - Routine Neurological Exam Present: alert, oriented X3 - Routine Psychiatric Exam Present: normal affect OB - A/P Antepartum (1) Normal delivery Status: Acute (2) Labor, precipitous, delivered Status: Acute - Additional Plan Planning to breastfeed?: No Plan: other Additional Information:: She arrived in active labor and delivered precipitously here in the hospital.
[2021-03-25 07:18] VITALS: BMI 34.4
[2021-03-25 07:19] VITALS: BP 107/59; PULSE 74; RESP 18; TEMP 36.4; O2SAT 98; BMI 34.4
--- NOTE | 2021-03-25 07:54 | HMH.PHAINT ---
MEDICATION RECONCILIATION COMPLETE USING OFFICE VISIT FROM LAST WEEK
[2021-03-25 08:31] LABS: Coronavirus 19, PCR Not Detected (NotDetected); Influenza A, PCR Not Detected (NotDetected); Influenza B, PCR Not Detected (NotDetected)
[2021-03-25 08:39] LABS: Basophils # 0.1 K/mm3 (0-0.2); Basophils % 0.4 % (0.1-2.0); Eosinophils # 0.1 K/mm3 (0.0-0.4); Eosinophils % 0.6 % (0.1-12.0); Hematocrit 38.9 % (37.0-47.0); Hemoglobin 12.6 g/dL (12.2-16.2); Lymphocytes # 1.4 K/mm3 (0.7-4.5); Lymphocytes % 8.3 % (10-50); Mean Corpuscular HGB Conc 32.3 g/dL (31.8-35.4); Mean Corpuscular Hemoglobin 30.2 pg (27.0-31.2); Mean Corpuscular Volume 93.4 fl (81-99); Mean Platelet Volume 10.1 fl (7.4-10.4); Monocytes # 0.5 K/mm3 (0.1-1.0); Monocytes % 3.1 % (1.7-9.3); Neutrophils # 14.6 K/mm3 (1.8-7.8); Neutrophils % 87.6 % (37.0-80.0); Platelet Count 238 K/mm3 (142-424); Red Blood Count 4.17 M/mm3 (4.20-5.40); Red Cell Distribution Width 15.1 % (11.5-17.5); White Blood Count 16.6 K/mm3 (4.8-10.8)
[2021-03-25 08:43] LABS: MANUAL DIFFERENTIAL MANUAL DIFFERENTIAL (MANUAL DIFF)
[2021-03-25 09:21] LABS: Eosinophils % 2 % (0-3); Lymphocytes % 17 % (10-50); Monocytes % 2 % (2-9); Neutrophils % 78 % (42-76); Platelet Estimate Normal; Total Cells Counted 100
--- NOTE | 2021-03-25 14:20 | P.PN_ITS ---
Internal Medicine - PN: Subj *Date: 03/25/21 *Time: 14:20 Interval history: She was having a few more clots than normal and I did an ultrasound and it looks like there were just clots within the lining of the uterus. I cannot see any retained placenta. Exam Vital signs and Labs for Last 24 Hours: Temp Pulse Resp BP Pulse Ox 97.5 F L 74 18 107/59 L 98 03/25/21 07:19 03/25/21 07:19 03/25/21 07:19 03/25/21 07:19 03/25/21 07:19 Laboratory Results - last 24 hr 03/25/21 08:20: WBC 16.6 H, RBC 4.17 L, Hgb 12.6, Hct 38.9, MCV 93.4, MCH 30.2, MCHC 32.3, RDW 15.1, Plt Count 238, MPV 10.1, Neut % (Auto) 87.6 H, Lymph % (Auto) 8.3 L, [place] % (Auto) 3.1, Eos % (Auto) 0.6, Baso % (Auto) 0.4, Neut # (Auto) 14.6 H, Lymph # (Auto) 1.4, [place] # (Auto) 0.5, Eos # (Auto) 0.1, Baso # (Auto) 0.1, Total Counted 100, Neutrophils % (Manual) 78 H, Band Neutrophils % 1.0, Lymphocytes % (Manual) 17, Monocytes % (Manual) 2, Eosinophils % (Manual) 2, Platelet Estimate Normal 03/25/21 08:20: SARS-CoV-2 (PCR) Not detected, Influenza A Untype (PCR) Not detected, Influenza Type B (PCR) Not detected 03/25/21 08:20: Blood Type O Positive, Antibody Screen Negative I & O for Last 24 hours: Intake & Output 03/23/21 03/24/21 03/25/21 03/26/21 11:59 11:59 11:59 11:59 Weight 207 lb - Constitutional no acute distress - *Routine HEENT Exam Head: Present: CSF otorrhea Assessment and Plan (1) Normal delivery Status: Acute Category: Medical Code(s): O80 - Encounter for full-term uncomplicated delivery (2) Labor, precipitous, delivered Status: Acute Category: Medical Code(s): O62.3 - Precipitate labor - Assessment and plan all Dx Assessment and Plan for all problems:: I was able to express about 300 cc of clots from the lining of the uterus. We will give her Hemabate as well as more oxytocin. I given her something for pain as well. She is quite uncomfortable when I was expressing that. After the ultrasound there was still a small amount of thickening of the endometrium but it was no more than 1.8 cm. I do not believe there is any retained products. We will see how she does with the Hemabate and oxytocin.
[2021-03-25 19:02] LABS: Hematocrit 38.4 % (37.0-47.0); Hemoglobin 12.5 g/dL (12.2-16.2)
[2021-03-25 20:13] VITALS: BP 113/68; PULSE 90; RESP 18; TEMP 36.6; O2SAT 96
[2021-03-26 04:11] VITALS: BP 115/70; PULSE 86; RESP 18; TEMP 36.4; O2SAT 95
[2021-03-26 07:48] LABS: Hemoglobin 10.2 g/dL (12.2-16.2)
--- NOTE | 2021-03-26 10:10 | HMH.OBDCSM ---
General - General Admission date:: 03/25/21 Discharge date: 03/26/21 HPI - History of Present Illness History of present illness: She is a 30-year-old 7 para 5 aborta 1 who was 38 weeks gestational age. She came in in active labor and precipitously delivered. Hospital Course Hospital Course: She arrived in labor and delivery and was found be fully dilated. We got her to a delivery room and she precipitously delivered on arrival in the room. She delivered a liveborn male child at 6:30 AM on the morning of 25 March 2021. The baby weighed 7 pounds 6 ounces and was 19 and three-quarter inches long. He had Apgars of 8 at 1 minute and 9 at 5 minutes. She has done well and has remained afebrile throughout hospitalization. A few hours after her delivery she was having some excess bleeding and I was able to express a number of clots from her uterus. The pain is now normal. She has O+ blood, she is well immune endoscopy Streptococcus negative. Patient is Dr. Willis. She is discharged home to follow-up in 2 weeks time. She will continue with her vitamin. She is given usual stretches with respect to limiting her activity, driving and subjectively. She will have a tubal injection in about 6 weeks. Her condition on discharge is stable improved. Rhogam Administration: Not Indicated Objective Vital signs: Temp Pulse Resp BP Pulse Ox 97.5 F L 86 18 115/70 95 03/26/21 04:11 03/26/21 04:11 03/26/21 04:11 03/26/21 04:11 03/26/21 04:11 no acute distress - *Routine HEENT Exam Head: Present: normocephalic Eye: Present: EOMI, PERRL ENT: Present: mucous membranes moist Results Labs on day of discharge: Labs from last 24 hours 03/26/21 03/25/21 03/25/21 06:22 18:00 08:20 Hgb 10.2 L D 12.5 Hct 31.0 L 38.4 Blood Type O Positive Antibody Screen Negative Crossmatch (AHG) See Detail DS: Diagnosis - Discharge Diagnosis (1) Normal delivery Status: Acute (2) Labor, precipitous, delivered Status: Acute Discharge Plan - Patient Discharge Instructions ACTIVITY: No heavy lifting DIET: continue same diet Additional Instructions: Nothing in the vagina for 6 weeks No tub baths Drink plenty of fluid Patient Instructions: Depression, Hemorrhage, DI for Labor and Delivery, Vaginal , DI for Pre-eclampsia, [facility] Post Discharge Instructions, Preventing the Spread of Coronavirus Discharge Instructions - Follow up Plan Follow up with: Judah Yost MD [Primary Care Provider] - Disposition: Home, Self-Care Condition at discharge:: Stable Home Medications: Home Medications Medication Instructions Recorded Confirmed Type Vit,Calc76/Iron/Folic 1 tab PO DAILY 01/29/20 03/25/21 History [Prenatabs Rx Tablet] Ferrous Gluconate [Ferrous 324 mg PO DAILY 03/25/21 03/25/21 History Gluconate 324mg Tab] Prescriptions/Medication Reconciliation: Continued Vit,Calc76/Iron/Folic [Prenatabs Rx Tablet] 1 tab PO DAILY Ferrous Gluconate [Ferrous Gluconate 324mg Tab] 324 mg PO DAILY - Problem Reconciliation Problems Reviewed?: Yes
== END 2021-03-26 11:00 | disposition home or self-care (01) | DRG 807 ==
PROVIDERS: Admitting Provider Nurse Practitioner Obstetrics & Gynecology; PCP Nurse Practitioner Obstetrics & Gynecology; Visit Provider Nurse Practitioner Obstetrics & Gynecology
DX: O62.3 Precipitate labor (principal); Z37.0 Single live birth; O99.334 Smoking (tobacco) complicating childbirth; Z3A.38 38 weeks gestation of pregnancy; F17.210 Nicotine dependence, cigarettes, uncomplicated
CPT/HCPCS: 59409; 36415; 85007; 85014; 85018; 85025; 86850; C9803; U0003; U0005

== ENCOUNTER → 2021-05-02 09:43 | Outpatient (CLI) | payer MEDICAID, SELFPAY ==
[2021-05-02 09:59] LABS: Basophils # 0.1 K/mm3 (0-0.2); Basophils % 0.6 % (0.1-2.0); Eosinophils # 0.3 K/mm3 (0.0-0.4); Eosinophils % 4.4 % (0.1-12.0); Hematocrit 43.6 % (37.0-47.0); Hemoglobin 14.3 g/dL (12.2-16.2); Lymphocytes # 2.5 K/mm3 (0.7-4.5); Mean Corpuscular HGB Conc 32.8 g/dL (31.8-35.4); Mean Corpuscular Hemoglobin 30.2 pg (27.0-31.2); Mean Platelet Volume 8.5 fl (7.4-10.4); Monocytes # 0.4 K/mm3 (0.1-1.0); Monocytes % 5.8 % (1.7-9.3); Neutrophils # 4.3 K/mm3 (1.8-7.8); Neutrophils % 56.3 % (37.0-80.0); Platelet Count 268 K/mm3 (142-424); Red Blood Count 4.74 M/mm3 (4.20-5.40); Red Cell Distribution Width 13.6 % (11.5-17.5); White Blood Count 7.7 K/mm3 (4.8-10.8)
[2021-05-02 11:33] LABS: Chloride 106 mmol/L (98-107); Sodium 140 mmol/L (136-145)
[2021-05-02 11:34] LABS: Potassium 3.7 mmoL/L (3.5-5.1)
[2021-05-02 11:36] LABS: Blood Urea Nitrogen 8 mg/dl (7-17); Estimated Glomerular Filt Rate 117 ml/min (>60); GFR (African American) 142 ML/MIN (>60)
[2021-05-02 11:37] LABS: Anion Gap 12.7 mEq/L (5-15); Calcium 8.7 mg/dl (8.4-10.2); Carbon Dioxide 25 mmol/L (22.0-30.0); Glucose 129 mg/dl (74-100)
== END ==
PROVIDERS: Visit Provider Nurse Practitioner Obstetrics & Gynecology
DX: Z01.818 Encounter for other preprocedural examination (principal); Z20.822 Contact with and (suspected) exposure to COVID-19; Z30.09 Encounter for other general counseling and advice on contraception
CPT/HCPCS: 36415; 80048; 85025; C9803; U0003; U0005

== ENCOUNTER 2021-05-04 05:46 | Day surgery (SDC) | payer MEDICAID, SELFPAY ==
[2021-04-29 10:08] VITALS: BMI 31.2
[2021-05-04] VITALS (10 sets, daily range): BP systolic 120–135; BP diastolic 77–92; PULSE 56–92; RESP 12–18; TEMP 36.4–37.1; O2SAT 91–97
[2021-05-04 06:18] LABS: Urine Pregnancy, HCG Qual. Negative (Negative)
--- NOTE | 2021-05-04 06:57 | P.PN_ITS ---
[facility] Anesthesia Checklist - Structural Data Admitted From: Home Planned Operative Procedure/s: bliat salpingectomy Consent for Planned Operative Procedure(s) Verified: Yes - Additional verifications Anesthesia Reactions: No Hx Blood Transfusions: No Blood Transfusion Reaction: No - Airway Assessment C-Spine Mobility Assessed: Yes TMJ Mobility Assessed: Yes Dentition: Good Dentition - Neurological Assessment Level of Consciousness: Awake, Alert, Appropriate - Anesthesia Plan Anesthesia Risk discussed: Yes Anesthesia Plan: Verified ASA Class: II Anesthesia Type: General [facility] History I have reviewed the patient's past medical history: Yes Medical History: Reports:: Arrhythmia, Kidney Stones, Migraine Denies:: Cancer, Diabetes Mellitus Type 1, Diabetes Mellitus Type 2, Hypertension, Internal Pacemaker, MRSA, Seizures *Have you ever received a pneumonia vaccine?: No *Have you received a flu vaccine this season?: No Other Medical History: Denies: Blood Transfusion Reaction Anesthesia experience/problems:: none Other Surgeries: Yes: Other. No: , Pacemaker Amputation: No Fractures: Yes (FX NOSE) - *Social History Last grade of school completed: GED Smoking Status: Current every day smoker Tobacco Type: cigarettes # Packs/Day (cigarettes): 1 Alcohol Intake: current Alcohol Intake Frequency:: holidays/special occasions only Substance Use Type: other *Occupational Status:: unemployed Housing: house Household Members: children *Travel in the last 8 weeks: None Family Hx:: Cancer, Diabetes, Heart Attack
--- NOTE | 2021-05-04 08:15 | P.OP_ITS ---
Date of procedure: 05/04/21 Pre-op Diagnosis:: Desire for sterilization Post-op Diagnosis:: Desire for sterilization Procedure performed:: Laparoscopic bilateral salpingectomy Surgeon:: Judah Yost MD PERL PROGRAMMER:: Davide Harper Anesthesia: GETA Estimated blood loss (mL): 25 Clinical Note:: She is a 30-year-old 7 now para 6 aborta 1 who expressed desire for sterilization. The risks and benefits as well as the irreversibility of bilateral salpingectomy were discussed with the patient prior to surgery Operative findings:: She had a normal-appearing anteverted uterus that was somewhat bulky. The rest of the pelvis appeared normal. The upper abdomen was normal. The appendix was visualized and appeared normal. Operative note:: She was taken to the operating room where general anesthesia was found be adequate. She was prepped and draped in normal sterile fashion in the semilithotomy position. A weighted speculum was placed in the vagina and the anterior lip of the cervix was grasped with a tenaculum. I then inserted a Jannette uterine manipulator into the cervical os. The balloon was then insufflated. I changed gloves and injected 10 cc of 0.5% ropivacaine around her umbilicus and made a small incision within the umbilicus. I inserted a Veress needle into the abdominal cavity. The peritoneal cavity was then insufflated with carbon dioxide gas to a pressure of 20 mmHg. I then inserted a 5 millimeter trocar under direct vision. I injected through and through the pubic hairline, made a small incision here and inserted an 8 mm trocar under direct vision. I identified the inferior epigastric artery on the left side, went lateral to these and injected through and through. I then placed a 5 mm trocar here under direct vision. The pelvis and upper abdomen were then inspected and the findings were as previously dictated. I grasped the right tube at the cornua and using harmonic scalpel on coagulation mode I cut through the tube. I then grasped the distal tube and using harmonic scalpel cut along the mesosalpinx. The tube was removed through 8 mm trocar site. This was similarly performed on the patient's left side. There was a small amount of oozing from the right side of the fundus of the uterus where I had grasped it with a grasper. I cauterized this area and cover the area entirely with Surgicel. I let the gas out of the abdomen and the sites were hemostatic. I then injected 30 cc of 0.5% ropivacaine into the pelvis. After assuring hemostasis the gas was let out of the abdomen and hemostasis was once again assured. The abdomen was then reinsufflated. The secondary trochars were removed under direct vision. The gas was let out her abdomen. The primary trocar was then removed. The 8 mm trocar site was closed deeply with 2-0 Vicryl suture followed by subcuticular 4-0 Monocryl suture. The 5 mm trocar sites were closed with subcuticular 4-0 Monocryl. Sterile dressings were applied. The patient tolerated the procedure well and was taken to the recovery room in excellent condition. All sponge instrument and needle counts were correct. The estimated blood loss was less than 25 cc. Condition: stable Disposition: PACU Specimens:: Bilateral fallopian tubes Complications:: None
--- NOTE | 2021-05-04 08:21 | P.PN_ITS ---
[facility] Anesthesia Record Part I Intake, IV Amount: 1,000 Estimated blood loss (mL): 25 Urine output (mL): 0 Blood Pressure: 135/92 SaO2: 91 Pulse Rate: 92 Respiratory Rate: 16 Temperature: 98.7 F Patient is:: Drowsy, Stable Stable to PACU at:: 08:20
--- NOTE | 2021-05-04 08:56 | SUR.PHASEI ---
0855- detailed report given to pablo mendez in post op. Pt left in stable condition.
--- NOTE | 2021-05-04 11:08 | HMH.ANESII ---
[facility] Anesthesia Record Part II Discharge Time: 08:50 Destination: Surgical Day Care (OP Surgery) PACU nurse assessment reviewed?: Yes Patient Condition:: Good Anesthesia Complications:: None Swallowing reflex intact?: Yes Cyanosis?: No Blood Pressure: 120/77 Pulse Rate: 56 Temperature: 98.5 F Mental Status: Alert & Oriented Pain level:: 0 Nausea and/or vomitting:: None Intake, IV Amount: 0
== END 2021-05-04 09:16 | disposition home or self-care (01) ==
LOC: OR 05:48
PROVIDERS: Visit Provider Nurse Practitioner Obstetrics & Gynecology
PROC: (CPT 58661; principal; 2021-05-04 07:30)
DX: Z30.2 Encounter for sterilization (principal); I49.9 Cardiac arrhythmia, unspecified; G43.909 Migraine, unspecified, not intractable, without status migrainosus; Z87.442 Personal history of urinary calculi; Z72.0 Tobacco use; Z80.9 Family history of malignant neoplasm, unspecified; Z83.3 Family history of diabetes mellitus; Z82.3 Family history of stroke
CPT/HCPCS: 58661; 81025; 96374; J2405; J2710

== ENCOUNTER 2022-04-06 13:09 | Emergency (ER) | payer MEDICAID, SELFPAY ==
[2022-04-06 14:45] VITALS: BP 130/82; PULSE 91; RESP 20; TEMP 36.8; O2SAT 99; BMI 33.7
[2022-04-06 15:06] LABS: UTC Influenza A Antigen Negative (Negative); UTC Influenza B Antigen Negative (Negative)
[2022-04-06 15:23] VITALS: BP 130/82; PULSE 91; RESP 20; TEMP 36.8; O2SAT 99
--- NOTE | 2022-04-06 15:25 | EXP.UTC ---
Discharge Plan Disposition Patient Disposition: Home, Self-Care Condition: Good Prescriptions Prescriptions: New oseltamivir [Tamiflu] 75 mg capsule 75 mg PO Q12H 5 Days Qty: 10 0RF Referrals Follow up/Referrals: Laura Celis [Primary Care Provider] - See instructions Activity Restrictions/Add. Instructions Additional Instructions/Restrictions: Start Tamiflu today if you are going to take it. Discussed risk and possible benefits. Lots of rest Increase Fluids water, Gatorade, powerade, pedialyte,if infant/toddler/child Alternate Tylenol and / or ibuprofen as discussed for fever, aches, chills Follow up IMMEDIATELY with your family doctor for new or worsening Symptoms OR no noticeable improvement over the next 48-72 hours, 911 for difficulty or breathing You or your child area contagious until no fever, aches, chills for 24 hours with medication for symptoms Help Prevent the spread of influenza: ?Wash your hands often. Use soap and water. Wash your hands after you use the bathroom, change a child's diapers, or sneeze. Wash your hands before you prepare or eat food. Use gel hand cleanser that has 60% alcohol, when soap and water are not available. Do not touch your eyes, nose, or mouth unless you have washed your hands first. Cover your mouth when you sneeze or cough. Cough into a tissue or the bend of your arm. If you use a tissue, throw it away immediately and wash your hands. Clean shared items with a germ-killing cell cleaner. Clean table surfaces, doorknobs, and light switches. Do not share towels, silverware, and dishes with people who are sick. Wash bed sheets, towels, silverware, and dishes with soap and water. Wear a mask over your mouth and nose if you are sick. The face mask may help protect others from becoming infected with the flu. Wear the mask when in common areas of your home or if you seek care with a healthcare provider. Stay away from others if you are sick. Stay at home until 24 hours after your fever and symptoms are gone. Clinical Impressions Clinical Impression: Flu-like symptoms Stand Alone Forms Stand Alone Forms: Work/School Release Instructions Patient Instructions: DI for Influenza -- Adult, Oseltamivir Discharge ED Provider: Aundrea Estevez [facility] [place] General Stated complaint: chills, body aches, WILLIAM, cough Mode of Arrival: Ambulatory Limitations: No Limitations Time Seen by Provider: 04/06/22 15:25 Description of Symptoms (Recalled from Triage Doc. by RN): PATIENT C/O BODY ACHES, FEVER, AND HEADACHE SINCE YESTERDAY. RECENTLY EXPOSED TO FLU HEENT Symptoms (Recalled from RN notes): Yes Resp Symptoms (Recalled from RN notes): No Skin Symptoms (Recalled from RN notes): No MS Symptoms (Recalled from RN notes): No Functional Status (Recalled from RN notes): WNL History of Present Illness Provider Complaint: Patient states that she has a child that has the flu and now she is starting to have symptoms States that she is having bodyaches, chills, fever and nasal congestion States that she feels like she has it now too and her just tested positive for it Related Data Previous Rx's Medication Instructions Recorded oseltamivir 75 mg capsule (Tamiflu) 75 mg PO Q12H 5 days #10 caps 04/06/22 Allergies Allergy/AdvReac Type Severity Reaction Status Date / Time Latex, Natural Rubber Allergy Rash Verified 05/27/21 14:15 sulfamethoxazole Allergy Verified 05/27/21 14:15 [From Bactrim] trimethoprim [From Bactrim] Allergy Verified 05/27/21 14:15 Worker's Comp Is this a Worker's Comp case?: No PFSH PFSH Medical History (Updated 04/06/22 @ 15:28 by Aundrea Estevez APRN) No significant past medical history Social History (Updated 04/06/22 @ 15:02 by Sierra Jiménez RN) Smoking Status: Current every day smoker t
== END 2022-04-06 15:34 | disposition home or self-care (01) ==
PROVIDERS: Emergency Provider Nurse Practitioner; PCP Nurse Practitioner Family
DX: R50.9 Fever, unspecified (principal); R05.9 Cough, unspecified; R51.9 Headache, unspecified; M79.10 Myalgia, unspecified site; R09.81 Nasal congestion; F17.210 Nicotine dependence, cigarettes, uncomplicated; Z79.899 Other long term (current) drug therapy; Z88.2 Allergy status to sulfonamides; Z88.8 Allergy status to other drugs, medicaments and biological substances; Z91.040 Latex allergy status
CPT/HCPCS: 87804; 99213; G0463

== ENCOUNTER 2022-12-03 15:45 | Emergency (ER) | payer MEDICAID, SELFPAY ==
[2022-12-03 15:47] VITALS: BP 147/86; PULSE 78; RESP 16; TEMP 36.8; O2SAT 100; BMI 26.5
--- NOTE | 2022-12-03 16:25 | XR_ITS ---
PROCEDURE INFORMATION: Exam: XR Right Wrist Exam date and time: 12/03/2022 4:31 PM Age: 32 years old Clinical indication: Pain; Wrist; Right; Additional info: Trauma. Patient fell TECHNIQUE: Imaging protocol: Radiologic exam of the right wrist. Views: 3 or more views. COMPARISON: No relevant prior studies available. FINDINGS: Bones/joints: Normal. No fracture identified. Soft tissues: Normal. IMPRESSION: No acute findings.
--- NOTE | 2022-12-03 16:25 | XR_ITS ---
PROCEDURE INFORMATION: Exam: XR Right Forearm Exam date and time: 12/03/2022 4:32 PM Age: 32 years old Clinical indication: Pain; Lower or forearm; Right; Additional info: Trauma TECHNIQUE: Imaging protocol: Radiologic exam of the right forearm. Views: 2 views. COMPARISON: CR Wrist R 12/03/2022 4:31 PM FINDINGS: Bones/joints: Normal. No fracture identified. Soft tissues: Normal. IMPRESSION: No acute findings.
--- NOTE | 2022-12-03 16:29 | HMH.EDUPEXT ---
Discharge Plan Disposition Patient Disposition: Home, Self-Care Chief Complaint: Extremity Injury, Upper Prescriptions Prescriptions: No Action amoxicillin-pot clavulanate 875-125 mg tablet 1 tab PO BID 10 Days Qty: 20 0RF wrfrchsoqqdjqxr-pvegruddy-KL [Bromfed DM] 2-30-10 mg/5 mL syrup 5 ml PO Q4-6H PRN (Reason: cold symptoms) Qty: 200 0RF Referrals Follow up/Referrals: Laura Celis [Primary Care Provider] - See instructions Clinical Impressions Clinical Impression: Injury of forearm and wrist Discharge ED Provider: Jayant Siddiqui Upper Extremity HPI General Chief Complaint: Extremity Injury, Upper Stated Complaint: AO 12/03/22 1445 Right wrist pain Time Seen by Provider: 12/03/22 16:22 Mode of Arrival: Ambulatory Source of Information: Patient Limitations: No Limitations Description of Symptoms (Recalled from ER Triage Doc. by RN): Presents to ED with complaints of RUE pain nathaniel occured 1 hour ago after tripping up steps and landing with her right arm under her. +PMS. 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 Notable swelling to wrist. History of Present Illness HPI narrative: 32-year-old white female tripped going upper steps and fell injuring her right forearm and wrist. The patient has a history of tobacco abuse but is on no regular home medications and lists allergies to latex and Bactrim. Related Data Previous Rx's Medication Instructions Recorded amoxicillin 875 mg-potassium 1 tab PO BID 10 days #20 tabs 06/10/22 clavulanate 125 mg tablet zeqeapypxejerxv-wsygwvdqkazawyj-WD 5 ml PO Q4-6H PRN cold symptoms 06/10/22 2 mg-30 mg-10 mg/5 mL oral syrup #200 mL (Bromfed DM) Allergies Allergy/AdvReac Type Severity Reaction Status Date / Time Latex, Natural Rubber Allergy Rash Verified 06/10/22 10:07 sulfamethoxazole Allergy Verified 06/10/22 10:07 [From Bactrim] trimethoprim [From Bactrim] Allergy Verified 06/10/22 10:07 [facility] Disclaimer: The information contained in this section may have been updated after the patient was seen, as this information can be updated by other users. Medical History No significant past medical history Social History Smoking Status: Current every day smoker tobacco type: cigarettes packs per day: 1 second hand exposure: Yes alcohol intake: current substance use type: other current occupational status: unemployed Travel in the last 8 weeks: None household members: children housing: house current occupational exposures/hazards: No caffeine: Yes ROS Obtained: Yes Systems reviewed as appropriate & no additional complaints except as documented Physical Exam General General appearance: alert and in no apparent distress Head Head exam: atraumatic and normocephalic Eye Eye exam: Present normal appearance ENT ENT exam: Present normal exam Neck Neck exam: Present normal inspection Respiratory Respiratory exam: Present normal lung sounds bilaterally Cardiovascular Cardiovascular exam: Present regular rate and normal rhythm Abdominal Exam Abdominal exam: Present soft; Absent tenderness Extremities Exam Extremities exam: Present tenderness (And swelling of the right distal forearm the radial aspect. She is neurovascularly intact.) Neurological Exam Neurological exam: Present alert, oriented X3 and CN II-XII intact Medical Decision Making Medical Records MR Comment: 32-year-old white female fell on her right wrist after having tripped on her front porch. She has some swelling of her right distal radial area and is markedly tender all up and down that area she is neurovascularly intact. X-rays revealed no fracture or dislocation per the official report her treatment consisted of Toradol 60 mg IM and she reports improvement in the symptoms from that. She is anxious to return home and we will give her Mike Inquiry Pt receiving controlled
[2022-12-03 17:29] VITALS: BP 120/82; PULSE 72; RESP 16; TEMP 36.8; O2SAT 98
== END 2022-12-03 17:32 | disposition home or self-care (01) ==
PROVIDERS: Emergency Provider Emergency Medicine; PCP Nurse Practitioner Family
DX: M25.531 Pain in right wrist (principal); W10.9XXA Fall (on) (from) unspecified stairs and steps, initial encounter; F17.210 Nicotine dependence, cigarettes, uncomplicated
CPT/HCPCS: 73090; 73110; 96372; 99283; 99284

== ENCOUNTER 2023-04-04 08:00 | Emergency (ER) | payer MEDICAID, SELFPAY ==
[2023-04-04 08:10] VITALS: BP 117/71; PULSE 78; RESP 18; TEMP 36.7; O2SAT 99; BMI 28.1
--- NOTE | 2023-04-04 08:24 | EXP.UTC ---
Discharge Plan Disposition Patient Disposition: Home, Self-Care Condition: Good Prescriptions Prescriptions: New amoxicillin 500 mg capsule 500 mg PO TID 10 Days Qty: 30 0RF fluticasone propionate [Flonase Allergy Relief] 50 mcg/actuation spray,suspension 1 - 2 spray intranasal DAILY Qty: 16 0RF Rx Instructions: administer into each nostril nystatin 100,000 unit/mL suspension 4 ml PO QID 7 Days Qty: 112 0RF Rx Instructions: apply 4ml in mouth then swish and spit Referrals Follow up/Referrals: Laura Celis [Primary Care Provider] - See instructions Activity Restrictions/Add. Instructions Additional Instructions/Restrictions: *Monitor Temp, Over the counter Motrin or Tylenol as directed/as needed Tylenol every 4 hours and Motrin every 6 hours (as long as your family doctor has told you that you can take it) for fever or pain. and straight to ER if unable to lower temp less than 101.0 after medication given *Warm salt water gargles may help to soothe the throat *Throat Lozenges? *Warm fluids like tea with honey may help to soothe the throat? *Sleep elevated *Humidifier/Vaporizer Your throat swab was sent for culture. Those results are typically sent to your primary care. Be sure to follow up in 2-3 days with your family doctor/primary care physician if no improvement so they can review those result and treat if necessary. If you don?t have a primary care doctor, I recommend you get one but in the mean time, you will have to return to a walk in clinic Follow up IMMEDIATELY for new or worsening symptoms or no Noticeable improvement over the next 48-72 hours. 911 for difficulty breathing or swallowing Clinical Impressions Clinical Impression: Pharyngitis Qualifiers: Pharyngitis/tonsillitis etiology: unspecified etiology Qualified Code(s): J02.9 - Acute pharyngitis, unspecified Instructions Patient Instructions: Sore Throat, Middle Ear Infection, DI for Otitis Media (Middle Ear Infection)-Child Discharge ED Provider: Aundrea Estevez [facility] General Stated complaint: sore throat, trouble swallowing Mode of Arrival: Ambulatory Source of Information: Patient Limitations: No Limitations Time Seen by Provider: 04/04/23 08:24 Description of Symptoms (Recalled from Triage Doc. 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 Related Data Previous Rx's Medication Instructions Recorded amoxicillin 500 mg capsule 500 mg PO TID 10 days #30 caps 04/04/23 fluticasone propionate 50 1 - 2 spray intranasal DAILY #16 04/04/23 mcg/actuation nasal grams spray,suspension (Flonase Allergy Relief) nystatin 100,000 unit/mL oral 4 ml PO QID 7 days #112 mL 04/04/23 suspension Allergies Allergy/AdvReac Type Severity Reaction Status Date / Time Latex, Natural Rubber Allergy Rash Verified 06/10/22 10:07 sulfamethoxazole Allergy Verified 06/10/22 10:07 [From Bactrim] trimethoprim [From Bactrim] Allergy Verified 06/10/22 10:07 Worker's Comp Is this a Worker's Comp case?: No PFS PFS Disclaimer: The information contained in this section may have been updated after the patient was seen, as this information can be updated by other users. Medical History (Updated 04/04/23 @ 08:51 by Aundrea Estevez APRN) Anxiety Atrial fibrillation Depression Urinary tract infection Surgical History (Updat
[2023-04-04 08:46] LABS: UTC Strep Screen (Rapid) Negative (Negative)
[2023-04-04 08:52] VITALS: BP 117/71; PULSE 78; RESP 18; TEMP 36.7; O2SAT 99
== END 2023-04-04 09:01 | disposition home or self-care (01) ==
PROVIDERS: Emergency Provider Nurse Practitioner; PCP Nurse Practitioner Family
DX: J02.9 Acute pharyngitis, unspecified (principal); H66.92 Otitis media, unspecified, left ear; F17.210 Nicotine dependence, cigarettes, uncomplicated
CPT/HCPCS: 87880; 99212; 99214; G0463